=== PATIENT | female | born 1995 | race African-American/Black ===

== ENCOUNTER 2022-10-14 10:11 | Emergency (ER) | payer OTHER ==
[2022-10-14 10:23] VITALS: BP 127/73
--- NOTE | 2022-10-14 11:14 | ED Physician Documentation ---
PD HPI LOWER EXT INJURY - Stated complaint Stated Complaint: LT TOE/BILAT KNEE PX - Chief complaint Chief Complaint: Ext Problem - History obtained from History obtained from: Patient - History of Present Illness PD HPI LOW EXT INJURY LOCATION: Both, Knee Type of injury: Fall (fell last week ans truck or bent great toe, with pain persisting at IP/MTP area. Hurts for movement.) Timing - onset: How many days ago (last week) Timing - duration: Days Timing - details: Abrupt onset, Still present Worsened by: Moving, Palpating Associated symptoms: Swelling. 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 Did not get any therapy there. returned home about a week ago. Having continued anterior knee pains with walking, stepping. No click/pop/giving out.) Review of Systems Skin: denies: Abrasion (s), Laceration (s) Neurologic: denies: Focal weakness, Numbness PD PAST MEDICAL HISTORY - Past Medical History Past Medical History: No Psych: Depression - Past Surgical History Past Surgical History: No - Present Medications Home Medications: Ambulatory Orders Medication Instructions Recorded Confirmed Acetaminophen [Acetaminophen Extra 500 mg PO QID PRN #50 tablet 10/14/22 Strength] Ergocalciferol [Vitamin D2] 50,000 unit PO Q7D 10/14/22 10/14/22 Meloxicam [Mobic] 7.5 mg PO BID 15 Days #30 tablet 10/14/22 Sertraline [Zoloft] 50 mg PO DAILY 10/14/22 10/14/22 - Allergies Allergies/Adverse Reactions: Allergies Allergy/AdvReac Type Severity Reaction Status Date / Time No Known Drug Allergies Allergy Verified 10/14/22 10:21 - Social History Does the pt smoke?: Yes Smoking Status: Current every day smoker Does the pt drink ETOH?: Yes Does the pt have substance abuse?: No - Immunizations Immunizations are current?: Yes PD ED PE NORMAL - Vitals Vital signs reviewed: Yes - General General: Alert and oriented X 3, No acute distress, Well developed/nourished - Derm Derm: Normal color, Warm and dry - Extremities Extremities: Other (left great toe with some tenderness and swelling but no deformity at IP/MTP area. Not red. Bilateral knees hurt with palpation anterior and inferior to kneecap. No effusion. Pain with valgus stress medially. No click/pop on passive ROM.) - Neuro Neuro: No motor deficit, No sensory deficit Results - Vitals Vitals: Oxygen O2 Source Room air - Rads (name of study) great toe Relevant Findings:: Prelim report reviewed, EMP independent interpretation of test (no fracteure) bilateral knees Relevant Findings:: Prelim report reviewed (no acute bony abnormalities. ), EMP independent interpretation of test PD Medical Decision Making - ED course Complexity details: reviewed results (toe injury without fractures. Knees sound like tendonitis but have traveled even recently and [place], so to se PCP about restarting PT, and consider imaging knees such as MRI. ), considered differential, d/w patient Departure - Departure Disposition: 01 Home, Self Care Clinical Impression: Knee tendonitis Sprain of toe, great, left Qualifiers: Encounter type: initial encounter Qualified Code(s): S93.502A - Unspecified sprain of left great toe, initial encounter Knee pain, bilateral Qualifiers: Chronicity: acute Qualified Code(s): M25.561 - Pain in right knee Condition: Stable Record reviewed to determine appropriate education?: Yes Prescriptions: Acetaminophen [Acetaminophen Extra Strength] 500 mg PO QID PRN #50 tablet PRN Reason: Pain Meloxicam [Mobic] 7.5 mg PO BID 15 Days #30 tablet Comments: Your toe x-ray is normal. Presume a sprain of the joint at the base of the toe. I would anticipate this improving over the next several days to week. Light activity as needed. The x-rays of your knees are normal as well. However the knee problems are 85 to 90% none bony related (ligaments, tendons, bursa, cartilage, muscles). Your knee pain sound likely to be recurring/chronic tendinitis. However cannot exclude some ligament inflammation at the medial collateral ligaments or even some cartilage inflammation in the knees. [employer] duty and activity for the next week. See if your primary care can reinstitute you with physical therapy. Use some regular anti-inflammatory for the next week and a half or 2. I wrote a prescription for meloxicam twice daily. To that add Tylenol every 4 times a day if needed for pains. Follow-up with your primary care for further treatment. Call for an appointment. I sent your prescriptions to your preferred pharmacy. Forms: PCP List, Activity restrictions Discharge Date/Time: 10/14/22 12:53
--- NOTE | 2022-10-14 12:22 | XRAY Report ---
PROCEDURE: Knee 3 View BILAT INDICATIONS: knee pains for months, worsening TECHNIQUE: 3 views of the bilateral knee(s) were acquired. COMPARISON: None. FINDINGS: Bones: No fractures or dislocations. No suspicious bony lesions. Soft tissues: No knee joint effusion. No suspicious soft tissue calcifications or masses. IMPRESSION: No acute bony abnormality. If there remains a high clinical concern for fracture, consider cross-sect ional imaging now. If pain persists, consider repeat x-ray in 10-14 days or cross-sectional imaging. Reviewed by: Dax Villafuerte MD on 10/14/2022 12:21 PM PDT Approved by: Dax Villafuerte MD on 10/14/2022 12:21 PM PDT Station ID: [id number]
--- NOTE | 2022-10-14 12:23 | XRAY Report ---
PROCEDURE: Toe(s) LT INDICATIONS: injured great toe last night TECHNIQUE: 3 views of the great toe(s) acquired. COMPARISON: None FINDINGS: Bones: No fractures or dislocations. No suspicious bony lesions. Soft tissues: No suspicious soft tissue densities. IMPRESSION: No acute bony abnormality. Reviewed by: Dax Villafuerte MD on 10/14/2022 12:22 PM PDT Approved by: Dax Villafuerte MD on 10/14/2022 12:22 PM PDT Station ID: [id number]
[2022-10-14] MEDS ORDERED: dexAMETHasone 4 MG TABLET PO STA (12:34)
== END 2022-10-14 12:53 | disposition home or self-care (01) ==
LOC: ED 10:11
DX: M76.9 Unspecified enthesopathy, lower limb, excluding foot (principal); S93.502A Unspecified sprain of left great toe, initial encounter; W19.XXXA Unspecified fall, initial encounter; W22.8XXA Striking against or struck by other objects, initial encounter; F17.200 Nicotine dependence, unspecified, uncomplicated
CPT/HCPCS: 73562; 73660; 99283; 99284; J8540

== ENCOUNTER 2022-10-22 07:55 | Emergency (ER) | payer OTHER ==
[2022-10-22 08:10] VITALS: BP 132/86; O2SAT 99
--- NOTE | 2022-10-22 08:32 | ED Physician Documentation ---
PD HPI HEADACHE - Stated complaint Stated Complaint: MIGRAINE RT SIDE,NECK PX - Chief complaint Chief Complaint: Neuro - History obtained from History obtained from: Patient - History of Present Illness Timing - onset: How many days ago (3) Timing - onset during: Light activity Timing - duration: Days (3) Timing - details: Gradual onset, Still present Worst headache ever?: No: Worst headache ever? Location: Right Quality: Throbbing, Aching Associated symptoms: Nausea, Vision changes. No: Fever, Stiff neck, Vomiting, Weakness Improved by: Dark room, Quiet Worsened by: Noise Contributing factors: No: Recent illness, Trauma Similar symptoms before: Diagnosis (She states the onset and character of the headache is similar to migraines that she gets about once every 1 to 2 months. Typically uses ibuprofen and rests for the day. Has not had migraine specific medicines previously.) Recently seen: Clinic (Seen yesterday at [facility] and prescribed a medication that she took 2-3 times that decrease the headache for several hours but then back again. She was not sure the medicine. I saw on her pharmacy log that it was rizatriptan.) Review of Systems Constitutional: denies: Fever, Chills Eyes: denies: Loss of vision Nose: denies: Rhinorrhea / runny nose, Congestion Throat: denies: Sore throat Respiratory: denies: Cough Neurologic: denies: Focal weakness, Numbness PD PAST MEDICAL HISTORY - Past Medical History Cardiovascular: None Neuro: Migraines Psych: Depression - Past Surgical History Past Surgical History: No - Present Medications Home Medications: Ambulatory Orders Medication Instructions Recorded Confirmed Acetaminophen [Acetaminophen Extra 500 mg PO QID PRN #50 tablet 10/14/22 10/22/22 Strength] Ergocalciferol [Vitamin D2] 50,000 unit PO Q7D 10/14/22 10/22/22 Meloxicam [Mobic] 7.5 mg PO BID 15 Days #30 tablet 10/14/22 10/22/22 Sertraline [Zoloft] 50 mg PO DAILY 10/14/22 10/22/22 Ondansetron Odt [Zofran] 4 mg TL Q6H PRN #10 tablet 10/22/22 Rizatriptan Benzoate [Rizatriptan] 10 mg PO 10/22/22 Rizatriptan Benzoate [Rizatriptan] 10 mg PO Q4H PRN #6 tab 10/22/22 dexAMETHasone [Decadron] 4 mg PO DAILY #5 tablet 10/22/22 - Allergies Allergies/Adverse Reactions: Allergies Allergy/AdvReac Type Severity Reaction Status Date / Time No Known Drug Allergies Allergy Verified 10/14/22 10:21 - Social History Does the pt smoke?: Yes Smoking Status: Current every day smoker Does the pt drink ETOH?: Yes Does the pt have substance abuse?: No - Immunizations Immunizations are current?: Yes PD ED PE NORMAL - Vitals Vital signs reviewed: Yes - General General: Alert and oriented X 3, No acute distress, Well developed/nourished - HEENT HEENT: PERRL, EOMI (light sensitive, marvin right eye. ) - Neck Neck: Supple, no meningeal sign, No adenopathy - Cardiac Cardiac: RRR, No murmur - Respiratory Respiratory: Clear bilaterally - Derm Derm: Normal color, Warm and dry - Neuro Neuro: Alert and oriented X 3, No motor deficit, No sensory deficit, Normal speech Eye Opening: Spontaneous Motor: Obeys Commands Verbal: Oriented GCS Score: 15 Results - Vitals Vitals: Vital Signs - 24 hr 10/22/22 08:04 Temperature 37.0 C Heart Rate 64 Respiratory 18 Rate Blood Pressure 132/86 H O2 Saturation 99 Oxygen O2 Source Room air PD Medical Decision Making - ED course Complexity details: re-evaluated patient (improved/mostly gone after IV fluids, toradol, compazine, decadron. ), considered differential (She states the character of the headache is like her migraines but the duration is unusual. She had been prescribed rizatriptan by the [facility] yesterday which helped briefly but then returned.), d/w patient Reviewed Lab Results: Considered but did not see needed any imaging such as CT or MRI as symptoms were typical for her migraines. Departure - Departure Disposition: 01 Home, Self Care Clinical Impression: Migraine with status migrainosus Condition: Stable Record reviewed to determine appropriate education?: Yes Instructions: ED Headache Migraine Follow-Up: [facility] [Provider Group] Prescriptions: dexAMETHasone [Decadron] 4 mg PO DAILY #5 tablet Rizatriptan Benzoate [Rizatriptan] 10 mg PO Q4H PRN #6 tab PRN Reason: Migraine Ondansetron Odt [Zofran] 4 mg TL Q6H PRN #10 tablet PRN Reason: Nausea / Vomiting Comments: I sent to your pharmacy prescriptions for ondansetron/Zofran to help with nausea if needed. Also Decadron steroid daily for several more days should your headache persist to some degree. Return to the ER if comes back strongly in the next couple of days. You could try [facility] as [facility]. By your pharmacy prescription log from [facility], it does look like rizatriptan that they prescribed which is a migraine specific medication. Typically it is prescribed as no more than 2 and 1 day. You could use some later today or again tomorrow if your headache were coming back more. Typically works best in the earlier part of the migraines so that may be why it did not eliminate it with the recent use. Otherwise the medication we gave today as well as the steroid tries to eliminate the current persistent migraine and keep it from rebounding again. Off work today. I did prescribe some more of the rizatriptan in case you were to need more for the future. These would be most useful to take when you have a regular migraine, early on in it. Add Tylenol or ibuprofen if needed for pains. Forms: PCP List, Activity restrictions Discharge Date/Time: 10/22/22 10:26
[2022-10-22] MEDS ORDERED: SODIUM CHLORIDE 0.9% 1,000 ML IV STA (08:43)
[2022-10-22] MEDS ORDERED: DEXAMETHASONE 10 MG/ML VIAL IVP STA (08:49)
[2022-10-22] MEDS ORDERED: PROCHLORPERAZINE 10 MG/2 ML VIAL IVP STA (08:50)
[2022-10-22] MEDS ORDERED: KETOROLAC 15 MG/ML VIAL IVP STA (08:51)
== END 2022-10-22 10:26 | disposition home or self-care (01) ==
LOC: ED 07:55
DX: G43.101 Migraine with aura, not intractable, with status migrainosus (principal); F17.200 Nicotine dependence, unspecified, uncomplicated
CPT/HCPCS: 36415; 96374; 96375; 99283